=== PATIENT | female | born 1975 | race Two or more races ===

== ENCOUNTER → 2016-12-05 | Emergency (ER) | payer SELFPAY ==
[~2016-12-05] VITALS: Ht 165.1 cm; Wt 63.5 kg
[~2016-12-05] MED LIST: IBUPROFEN600 MG ORAL
--- NOTE | 2016-12-05 01:05 | Emergency Room Report ---
History of Present Illness General Chief Complaint: Pain Source: Patient Present Illness HPI Is a 41-year-old female with no past medical history. She presents with chief complaint of left foot pain. She called 911. She said that she can. She was walking on it. Does not know how long is been hurting but she says been hurting for a while. No trauma. No fever or chills. Worse with walking. Allergies: Coded Allergies: No Known Allergies (Unverified , 12/05/16) Patient History Past Medical History: see triage record, old chart reviewed Past Surgical History: none Pertinent Family History: none Social History: Denies: smoking Now: No Immunizations: other Reviewed Nursing Documentation: PMH: Agreed, PSxH: Agreed Nursing Documentation-PMH Past Medical History: No Stated History Review of Systems Eye: Denies: eye pain, blurred vision ENT: Denies: ear pain, nose congestion, throat swelling Respiratory: Denies: cough, shortness of breath Cardiovascular: Denies: chest pain, palpitations Gastrointestinal: Denies: abdominal pain, diarrhea, nausea, vomiting Musculoskeletal: Reports: joint pain, muscle pain, Denies: back pain Skin: Denies: rash Neurological: Denies: headache, numbness Endocrine: Denies: increased thirst, increased urine Hematologic/Lymphatic: Denies: easy bruising All Other Systems: negative except mentioned in HPI Physical Exam Vital Signs Date Time Temp Pulse Resp B/P (MAP) Pulse Ox O2 Delivery O2 Flow Rate FiO2 12/05/16 00:33 97.3 64 16 104/67 97 Room Air vitals normal Sp02 EP Interpretation: reviewed, normal General Appearance: well appearing, no apparent distress, alert Head: normocephalic, atraumatic Eyes: bilateral eye PERRL, bilateral eye EOMI ENT: hearing grossly normal, normal pharynx Neck: full range of motion, supple, no meningismus Respiratory: chest non-tender, lungs clear, normal breath sounds Cardiovascular #1: regular rate, rhythm, no murmur Gastrointestinal: normal bowel sounds, non tender, no mass, no organomegaly, no bruit, non-distended Musculoskeletal: back normal, gait/station normal, normal range of motion, other - No deformity to the left foot. She scream in pain when I touch it. But she is walking well without a problem Psychiatric: mood/affect normal Skin: warm/dry Procedures Splinting Splinting : Consent: Verbal Location: Foot Pre-Made Type: Orthopedic shoes Pre-Proc Neuro Vasc Exam: normal Post-Proc Neuro Vasc Exam: normal Patient Tolerated: Well Complications: None Medical Decision Making Diagnostic Impression: Primary Impression: Foot pain, left ER Course Patient with left foot pain. No trauma. X-ray unremarkable. We'll discharge him. Last Vital Signs Date Time Temp Pulse Resp B/P (MAP) Pulse Ox O2 Delivery O2 Flow Rate FiO2 12/05/16 00:33 97.3 64 16 104/67 97 Room Air Status: improved Disposition: HOME, SELF-CARE Condition: Stable Scripts Ibuprofen* (MOTRIN*) 600 Mg Tablet 600 MG ORAL Q8H Y for For Pain, #30 TAB 0 Refills Prov: DEBBIE ESQUIVEL M.D. 12/05/16 Additional Instructions: followup with your DrRobb in 7 days. Return if symptom worsen. DEBBIE ESQUIVEL M.D. Dec 05, 2016 01:05
[2016-12-05 01:16] VITALS: BP_SYST 104; BP_SYST 110; BP_DIAS 67
--- NOTE | 2016-12-05 10:31 | Diagnostic Imaging Report ---
Indication: Pain Comparison: None Findings: 2 views of the left foot were obtained. No acute fractures, malalignment, erosions or periostitis are identified. Bone mineralization is within normal limits. Soft tissues are unremarkable. Impression: No acute findings
== END | disposition home or self-care (01) ==
LOC: EDBD 00:30 → EMR 01:00
DX: M79.672 Pain in left foot (principal)
CPT/HCPCS: 99283